=== PATIENT | male | born 1960 | race Caucasian/White ===

== ENCOUNTER 2016-08-06 08:57 | Emergency (ER) | payer BC ==
[~2016-08-06] VITALS: Wt 185.6 kg
[~2016-08-06 08:57] MED LIST: ACIDOPHILUS LA1 EACH PO; AMOXICILLIN875 MG PO; ATIVAN1 M1 PO; ATIVAN1 MG PO; CLOPIDOGREL PO; FAMVIR500 MG PO; LEVSIN-SL0.125 MG SL; NORCO 325 MG-51 TA1 PO; PROAIR HFA0.09 MG/AC IH; ULTRAM50 M1
[2016-08-06] MEDS ORDERED: B COMPLEX1 EACH PO (09:48)
[2016-08-06] MEDS ORDERED: SYMBICORT1 AE2 IH (09:48)
[2016-08-06] MEDS ORDERED: GABAPENTIN100 MG PO (09:49)
[2016-08-06] MEDS ORDERED: BACTRIM DS TAB1 EACH PO (12:08)
[2016-08-06 12:44] VITALS: BP 157/97
== END 2016-08-06 12:45 | disposition home or self-care (01) ==
LOC: ED 08:57
DX: L03.114 Cellulitis of left upper limb (principal); R29.898 Other symptoms and signs involving the musculoskeletal system; Z86.73 Personal history of transient ischemic attack (TIA), and cerebral infarction without residual deficits; Z79.02 Long term (current) use of antithrombotics/antiplatelets

== ENCOUNTER 2017-05-24 17:21 | Emergency (ER) | payer BC ==
[~2017-05-24] VITALS: Wt 185.3 kg
[~2017-05-24 17:21] MED LIST changes: +B COMPLEX1 EACH PO; +BACTRIM DS TAB1 EACH PO; +GABAPENTIN100 MG PO; +SYMBICORT1 AE2 IH
[2017-05-24 18:10] LABS: EOS # 0.1 (0.04-0.40); EOS % 1.6 % (0.0-4.0); HEMATOCRIT 39.8 % (42.0-52.0); HEMOGLOBIN 13.5 g/dL (13.5-18.0); LYMPH# 1.2 (1.50-4.00); MEAN CELL VOLUME 86 fl (78-100); MEAN CORPUSCULAR HEMOGLOBIN 29 pg (27-31); MEAN CORPUSCULAR HGB CONC 34 g/dL (33-37); MEAN PLATELET VOLUME 9.5 fl (7.4-10.4); MONO # 0.7 (0.20-0.80); NEU # 4.4 (1.40-6.50); PLATELET COUNT 195 K/mm3 (130-400); RED BLOOD COUNT 4.61 M/mm3 (4.20-5.60); RED CELL DISTRIBUTION WIDTH 14.2 % (11.5-14.5); WHITE BLOOD COUNT 6.4 K/mm3 (4.8-10.8)
[2017-05-24 18:27] LABS: ALBUMIN 3.9 g/dL (3.5-5.0); BUN/CREATININE RATIO 18.1 (6.0-26.0); CALCIUM 8.7 mg/dL (8.4-10.2); TOTAL BILIRUBIN 0.4 mg/dL (0.2-1.3); TOTAL PROTEIN 7.4 g/dL (6.3-8.2)
[2017-05-24 18:28] VITALS: BP 149/71
== END 2017-05-24 18:40 | disposition short-term general hospital (02) ==
LOC: ED 17:21
PROVIDERS: Nurse Practitioner Primary Care
DX: T75.4XXA Electrocution, initial encounter (principal); W86.8XXA Exposure to other electric current, initial encounter; Y92.028 Other place in mobile home as the place of occurrence of the external cause; R20.8 Other disturbances of skin sensation; R20.2 Paresthesia of skin; R23.8 Other skin changes; G40.909 Epilepsy, unspecified, not intractable, without status epilepticus; T45.526A Underdosing of antithrombotic drugs, initial encounter; Z91.120 Patient's intentional underdosing of medication regimen due to financial hardship; T50.996A Underdosing of other drugs, medicaments and biological substances, initial encounter; Z88.7 Allergy status to serum and vaccine
CPT/HCPCS: J7030

== ENCOUNTER → 2017-07-16 | Outpatient (CLI) | payer BC | LOC: LAB 15:28 | DX: I48.91 Unspecified atrial fibrillation (principal) ==

== ENCOUNTER 2018-01-17 23:26 | Emergency (ER) | payer BC ==
[2018-01-18 00:42] LABS: HEMATOCRIT 36.3 % (42.0-52.0); HEMOGLOBIN 12.6 g/dL (13.5-18.0); MEAN CELL VOLUME 87 fl (78-100); MEAN CORPUSCULAR HEMOGLOBIN 30 pg (27-31); MEAN CORPUSCULAR HGB CONC 35 g/dL (33-37); MEAN PLATELET VOLUME 9.4 fl (7.4-10.4); PLATELET COUNT 187 K/mm3 (130-400); RED BLOOD COUNT 4.16 M/mm3 (4.20-5.60); RED CELL DISTRIBUTION WIDTH 13.8 % (11.5-14.5); WHITE BLOOD COUNT 5.3 K/mm3 (4.8-10.8)
[2018-01-18 00:49] LABS: CALCIUM 9.3 mg/dL (8.4-10.2); POTASSIUM 3.6 mmol/L (3.6-5.0); TOTAL BILIRUBIN 0.6 mg/dL (0.2-1.3); TOTAL PROTEIN 6.9 g/dL (6.3-8.2)
[2018-01-18 00:51] LABS: PARTIAL THROMBOPLASTIN TIME 23.7 SECONDS (21.0-32.0); PROTHROMBIN TIME 10.7 SECONDS (9.0-12.0)
[2018-01-18 01:02] LABS: LYMPHOCYTE 25 % (20-51); MONOCYTE 14 % (3-10); NEUTROPHILS 59 % (42-75)
[2018-01-18 01:19] LABS: URINE WBC 0 /hpf (0-3)
[2018-01-18 01:26] LABS: URINE APPEARANCE CLEAR; URINE BILIRUBIN NEGATIVE (NEGATIVE); URINE BLOOD NEGATIVE (NEGATIVE); URINE COLOR YELLOW; URINE GLUCOSE NEGATIVE (NEGATIVE); URINE KETONE NEGATIVE (NEGATIVE); URINE LEUKOCYTE ESTERASE NEGATIVE (NEGATIVE); URINE MUCUS PRESENT (NOT PRESENT); URINE NITRATE NEGATIVE (NEGATIVE); URINE PROTEIN(semi-quant) TRACE mg/dL (NEGATIVE); URINE UROBILINOGEN NORMAL (NORMAL)
[2018-01-18] MEDS ORDERED: NORCO 10-325 T1 EACH PO (01:33)
[2018-01-18 01:40] VITALS: BP 136/73
== END 2018-01-18 01:40 | disposition home or self-care (01) ==
LOC: ED 23:26
PROVIDERS: Nurse Practitioner
DX: R07.81 Pleurodynia (principal); S70.11XA Contusion of right thigh, initial encounter; W18.09XA Striking against other object with subsequent fall, initial encounter; I48.91 Unspecified atrial fibrillation; J44.9 Chronic obstructive pulmonary disease, unspecified; R56.9 Unspecified convulsions; Z79.02 Long term (current) use of antithrombotics/antiplatelets; Z79.899 Other long term (current) drug therapy

== ENCOUNTER 2018-05-02 13:52 | Emergency (ER) | payer BC ==
[~2018-05-02 13:52] MED LIST changes: +NORCO 10-325 T1 EACH PO
[2018-05-02 14:30] LABS: EOS # 0.1 (0.04-0.40); EOS % 1.4 % (0.0-4.0); HEMATOCRIT 40.2 % (42.0-52.0); HEMOGLOBIN 13.8 g/dL (13.5-18.0); MEAN CELL VOLUME 84 fl (78-100); MEAN CORPUSCULAR HEMOGLOBIN 29 pg (27-31); MEAN CORPUSCULAR HGB CONC 34 g/dL (33-37); MEAN PLATELET VOLUME 9.2 fl (7.4-10.4); MONO # 0.6 (0.20-0.80); NEU # 4.8 (1.40-6.50); PLATELET COUNT 218 K/mm3 (130-400); RED BLOOD COUNT 4.77 M/mm3 (4.20-5.60); RED CELL DISTRIBUTION WIDTH 13.9 % (11.5-14.5); WHITE BLOOD COUNT 6.4 K/mm3 (4.8-10.8)
[2018-05-02 14:40] LABS: ALBUMIN 4.3 g/dL (3.5-5.0); CALCIUM 9.4 mg/dL (8.4-10.2); TOTAL BILIRUBIN 0.6 mg/dL (0.2-1.3); TOTAL PROTEIN 7.7 g/dL (6.3-8.2)
[2018-05-02] MEDS ORDERED: AMOXICILLIN 50500 MG (14:49)
[2018-05-02] MEDS ORDERED: ONDANSETRON ODT8 MG PO (14:49)
[2018-05-02] MEDS ORDERED: METOPROLOL SUCC50 M1 PO (14:50)
[2018-05-02] MEDS ORDERED: FLECAINIDE ACE100 MG PO (14:50)
[2018-05-02] MEDS ORDERED: ELIQUIS5 MG PO (14:50)
[2018-05-02] MEDS ORDERED: HCTZ 25MG25 MG PO (14:50)
[2018-05-02 17:15] VITALS: BP 147/89
== END 2018-05-02 17:15 | disposition short-term general hospital (02) ==
LOC: ED 13:52
PROVIDERS: Nurse Practitioner Primary Care
DX: G81.92 Hemiplegia, unspecified affecting left dominant side (principal); R07.9 Chest pain, unspecified; I10 Essential (primary) hypertension; I25.2 Old myocardial infarction; G40.909 Epilepsy, unspecified, not intractable, without status epilepticus; Z79.01 Long term (current) use of anticoagulants; Z88.7 Allergy status to serum and vaccine; Z90.5 Acquired absence of kidney

== ENCOUNTER 2021-03-25 10:12 | Emergency (ER) | payer SELFPAY ==
[~2021-03-25] VITALS: Ht 182.9 cm; Wt 192.9 kg
[~2021-03-25 10:12] MED LIST changes: +AMOXICILLIN 50500 MG; +ASPIRIN 81M81 MG/TA2 PO; +CORTISPORIN-TC10 M1 OT; +ELIQUIS5 MG PO; +FLECAINIDE ACE100 MG PO; +GOOD NEIGHBOR P20 M1 PO; +HCTZ 25MG25 MG PO; +METOPROLOL SUCC50 M1 PO; +ONDANSETRON ODT8 MG PO; +TOPAMAX100 MG PO
[2021-03-25 11:13] LABS: HEMATOCRIT 38.7 % (42.0-52.0); HEMOGLOBIN 12.8 g/dL (13.5-18.0); MEAN CELL VOLUME 87 fl (78-100); MEAN CORPUSCULAR HEMOGLOBIN 29 pg (27-31); MEAN CORPUSCULAR HGB CONC 33 g/dL (33-37); MEAN PLATELET VOLUME 9.1 fl (7.4-10.4); PLATELET COUNT 199 K/mm3 (130-400); RED BLOOD COUNT 4.46 M/mm3 (4.20-5.60); RED CELL DISTRIBUTION WIDTH 14.3 % (11.5-14.5); WHITE BLOOD COUNT 7.5 K/mm3 (4.8-10.8)
[2021-03-25 11:14] LABS: ALBUMIN 3.7 g/dL (3.4-4.8)
[2021-03-25 11:15] LABS: CALCIUM 8.9 mg/dL (8.3-10.5)
[2021-03-25 11:17] LABS: TOTAL PROTEIN 7.1 g/dL (6.2-8.1)
[2021-03-25 11:18] LABS: TOTAL BILIRUBIN 0.7 mg/dL (0.2-1.2)
[2021-03-25 12:30] LABS: LYMPHOCYTE 6 % (20-51); MONOCYTE 6 % (3-10); NEUTROPHILS 85 % (42-75)
[2021-03-25 12:32] LABS: D-DIMER 0.72 mg/L FEU (0.15-0.50)
[2021-03-25] MEDS ORDERED: ZITHROMAX Z PA250 MG PO (13:48)
[2021-03-25] MEDS ORDERED: AUGMENTIN 875-1 EAC1 PO (13:48)
[2021-03-25 14:00] VITALS: BP 149/69
== END 2021-03-25 14:20 | disposition home or self-care (01) ==
LOC: ED 10:12
PROVIDERS: Physician Assistant
DX: J18.1 Lobar pneumonia, unspecified organism (principal); J44.9 Chronic obstructive pulmonary disease, unspecified; I10 Essential (primary) hypertension; Z87.891 Personal history of nicotine dependence; Z79.01 Long term (current) use of anticoagulants; Z79.899 Other long term (current) drug therapy; Z79.51 Long term (current) use of inhaled steroids; Z20.822 Contact with and (suspected) exposure to COVID-19
CPT/HCPCS: Q9967

== ENCOUNTER 2023-06-11 06:14 | Emergency (ER) | payer MEDICARE ==
[~2023-06-11 06:14] MED LIST changes: +AUGMENTIN 875-1 EAC1 PO; +ZITHROMAX Z PA250 MG PO
[2023-06-11 07:01] LABS: BASO # 0.01 K/mm3 (0.02-0.10); EOS # 0.09 K/mm3 (0.04-0.40); EOS % 1.9 % (0.0-4.0); HEMATOCRIT 37.7 % (42.0-52.0); HEMOGLOBIN 12.6 g/dL (13.5-18.0); MEAN CELL VOLUME 88 fl (78-100); MEAN CORPUSCULAR HEMOGLOBIN 29 pg (27-31); MEAN CORPUSCULAR HGB CONC 33 g/dL (33-37); MEAN PLATELET VOLUME 9.3 fl (7.4-10.4); NEU # 3.78 K/mm3 (1.40-6.50); PLATELET COUNT 150 K/mm3 (130-400); RED CELL DISTRIBUTION WIDTH 13.8 % (11.5-14.5); WHITE BLOOD COUNT 4.8 K/mm3 (4.8-10.8)
[2023-06-11 07:05] LABS: ALBUMIN 3.7 g/dL (3.4-4.8)
[2023-06-11 07:06] LABS: SODIUM 140 mmol/L (136-145)
[2023-06-11 07:07] LABS: CALCIUM 8.9 mg/dL (8.3-10.5)
[2023-06-11 07:08] LABS: GLUCOSE 110 mg/dL (75-110); TOTAL PROTEIN 6.4 g/dL (6.2-8.1)
[2023-06-11 07:09] LABS: CARBON DIOXIDE 21 mmol/L (23-31)
[2023-06-11 07:10] LABS: TOTAL BILIRUBIN 0.5 mg/dL (0.2-1.2)
[2023-06-11 07:13] LABS: AST-SGOT 21 U/L (5-34)
[2023-06-11 07:14] LABS: ALT/SGPT 36 U/L (0-55)
[2023-06-11 07:20] LABS: TROPONIN-I < 0.030 ng/mL (0.00-0.033)
[2023-06-11] MEDS ORDERED: ZITHROMAX Z PA250 MG PO (08:54)
[2023-06-11 09:11] VITALS: BP 136/85
[2023-06-11 13:25] LABS: LYMPH# 0.44 K/mm3 (1.50-4.00)
== END 2023-06-11 09:09 | disposition home or self-care (01) ==
LOC: ED 06:14
PROVIDERS: Nurse Practitioner
DX: J40 Bronchitis, not specified as acute or chronic (principal); J98.01 Acute bronchospasm; I11.0 Hypertensive heart disease with heart failure; I50.9 Heart failure, unspecified; G40.109 Localization-related (focal) (partial) symptomatic epilepsy and epileptic syndromes with simple partial seizures, not intractable, without status epilepticus; E66.01 Morbid (severe) obesity due to excess calories; Z87.891 Personal history of nicotine dependence; Z88.1 Allergy status to other antibiotic agents

== ENCOUNTER 2023-10-03 13:13 | Emergency (ER) | payer MEDICARE ==
[~2023-10-03 13:13] MED LIST changes: +ACETAMINOPHEN-H1 TA2 PO; +ALDACTONE 25MG25 MG PO; +LASIX80 M1 PO; +LOSARTAN POTASS25 MG PO; +POTASSIUM CHLO20 ME4 PO; +ROBAXIN 75750 MG/TA1 PO; +TORSEMIDE20 M1 PO; +VALACYCLOVIR1 GM PO
[2023-10-03 14:49] LABS: HEMATOCRIT 38.4 % (42.0-52.0); HEMOGLOBIN 12.9 g/dL (13.5-18.0); MEAN CELL VOLUME 89 fl (78-100); MEAN CORPUSCULAR HEMOGLOBIN 30 pg (27-31); MEAN CORPUSCULAR HGB CONC 34 g/dL (33-37); MEAN PLATELET VOLUME 9.8 fl (7.4-10.4); PLATELET COUNT 200 K/mm3 (130-400); RED BLOOD COUNT 4.33 M/mm3 (4.20-5.60); RED CELL DISTRIBUTION WIDTH 14.8 % (11.5-14.5); WHITE BLOOD COUNT 5.9 K/mm3 (4.8-10.8)
[2023-10-03 14:58] LABS: ALBUMIN 3.9 g/dL (3.4-4.8)
[2023-10-03 14:59] LABS: SODIUM 139 mmol/L (136-145)
[2023-10-03 15:01] LABS: GLUCOSE 106 mg/dL (75-110); TOTAL PROTEIN 6.8 g/dL (6.2-8.1)
[2023-10-03 15:02] LABS: CARBON DIOXIDE 19 mmol/L (23-31)
[2023-10-03 15:03] LABS: TOTAL BILIRUBIN 0.5 mg/dL (0.2-1.2)
[2023-10-03 15:06] LABS: AST-SGOT 20 U/L (5-34)
[2023-10-03 15:07] LABS: ALT/SGPT 27 U/L (0-55)
[2023-10-03 15:13] LABS: TROPONIN-I < 0.030 ng/mL (0.00-0.033)
[2023-10-03 15:21] LABS: LYMPHOCYTE 9 % (20-51); MONOCYTE 8 % (3-10); NEUTROPHILS 83 % (42-75)
[2023-10-03] MEDS ORDERED: Furosemide 40 MG/4 ML VIAL IV ONE ×2 (15:30)
[2023-10-03] MEDS ORDERED: Torsemide 20 MG TAB PO ONE (15:30)
[2023-10-03] MEDS ORDERED: Spironolactone 25 MG TAB PO ONE (15:30)
[2023-10-03] MEDS ORDERED: AMIODARONE200 MG PO (15:57)
[2023-10-03 16:38] VITALS: BP 122/78
== END 2023-10-03 16:38 | disposition home or self-care (01) ==
LOC: ED 13:13
PROVIDERS: Physician Assistant
DX: I50.9 Heart failure, unspecified (principal); Z87.09 Personal history of other diseases of the respiratory system
CPT/HCPCS: J1940

== ENCOUNTER 2023-12-08 16:16 | Emergency (ER) | payer MEDICARE ==
[~2023-12-08] VITALS: Ht 182.9 cm; Wt 192.5 kg
[~2023-12-08 16:16] MED LIST changes: +AMIODARONE200 MG PO
[2023-12-08] MEDS ORDERED: BENZONATATE100 M2 PO (16:26)
[2023-12-08] MEDS ORDERED: AZITHROMYCIN 250MGPK PO (16:28)
[2023-12-08] MEDS ORDERED: PREDNISONE20 M1 PO (16:28)
[2023-12-08] MEDS ORDERED: GOOD NEIGHBOR325 MG PO (16:30)
[2023-12-08] MEDS ORDERED: FLUTICASONE-SA1 EAC4 IH (16:31)
[2023-12-08 17:00] LABS: HEMATOCRIT 39.7 % (42.0-52.0); HEMOGLOBIN 13.4 g/dL (13.5-18.0); MEAN CELL VOLUME 88 fl (78-100); MEAN CORPUSCULAR HEMOGLOBIN 30 pg (27-31); MEAN CORPUSCULAR HGB CONC 34 g/dL (33-37); MEAN PLATELET VOLUME 9.5 fl (7.4-10.4); PLATELET COUNT 195 K/mm3 (130-400); RED CELL DISTRIBUTION WIDTH 14.5 % (11.5-14.5); WHITE BLOOD COUNT 8.2 K/mm3 (4.8-10.8)
[2023-12-08 17:03] LABS: ALBUMIN 3.9 g/dL (3.4-4.8)
[2023-12-08 17:04] LABS: CALCIUM 9.6 mg/dL (8.3-10.5)
[2023-12-08 17:07] LABS: PROTHROMBIN TIME 11.1 SECONDS (9.0-12.0); TOTAL BILIRUBIN 0.3 mg/dL (0.2-1.2)
[2023-12-08 17:13] LABS: LYMPHOCYTE 6 % (20-51); MONOCYTE 5 % (3-10); NEUTROPHILS 89 % (42-75)
[2023-12-08] MEDS ORDERED: ANUSOL-HC SUPPO25 MG RC (17:35)
[2023-12-08 17:37] LABS: PH-URINE 6.5 (5.0 - 8.0); URINE APPEARANCE CLEAR (CLEAR); URINE BILIRUBIN NEGATIVE (NEGATIVE); URINE COLOR YELLOW (YELLOW); URINE GLUCOSE NEGATIVE (NEGATIVE); URINE KETONE NEGATIVE (NEGATIVE); URINE PROTEIN(semi-quant) NEGATIVE (NEGATIVE)
[2023-12-08 17:38] LABS: URINE BLOOD NEGATIVE (NEGATIVE); URINE LEUKOCYTE ESTERASE 1+ (NEGATIVE); URINE NITRATE NEGATIVE (NEGATIVE)
[2023-12-08 17:56] VITALS: BP 115/88
== END 2023-12-08 17:45 | disposition home or self-care (01) ==
LOC: ED 16:16
PROVIDERS: Family Medicine
DX: K64.4 Residual hemorrhoidal skin tags (principal); K92.1 Melena; E66.01 Morbid (severe) obesity due to excess calories; Z68.43 Body mass index [BMI] 50.0-59.9, adult

== ENCOUNTER 2024-06-17 14:16 | Emergency (ER) | payer MEDICARE ==
[~2024-06-17] VITALS: Ht 182.9 cm; Wt 194.3 kg
[~2024-06-17 14:16] MED LIST changes: +ANUSOL-HC SUPPO25 MG RC; +AZITHROMYCIN 250MGPK PO; +BENZONATATE100 M2 PO; +FLUTICASONE-SA1 EAC4 IH; +GOOD NEIGHBOR325 MG PO; +PREDNISONE20 M1 PO
[2024-06-17] MEDS ORDERED: ASPIRIN E.C. 8181 MG (14:24)
[2024-06-17] MEDS ORDERED: ZYRTEC10 M3 PO (14:25)
[2024-06-17] MEDS ORDERED: GUAIFEN-CODEIN118 ML PO (14:27)
[2024-06-17 14:40] LABS: HEMATOCRIT 39.9 % (42.0-52.0); HEMOGLOBIN 13.5 g/dL (13.5-18.0); MEAN CELL VOLUME 88 fl (78-100); MEAN CORPUSCULAR HEMOGLOBIN 30 pg (27-31); MEAN CORPUSCULAR HGB CONC 34 g/dL (33-37); MEAN PLATELET VOLUME 9.1 fl (7.4-10.4); PLATELET COUNT 132 K/mm3 (130-400); RED BLOOD COUNT 4.52 M/mm3 (4.20-5.60); RED CELL DISTRIBUTION WIDTH 14.4 % (11.5-14.5)
[2024-06-17 14:47] LABS: ALBUMIN 3.8 g/dL (3.4-4.8)
[2024-06-17 14:49] LABS: CALCIUM 8.7 mg/dL (8.3-10.5)
[2024-06-17 14:50] LABS: TOTAL PROTEIN 7.1 g/dL (6.2-8.1)
[2024-06-17 14:52] LABS: TOTAL BILIRUBIN 0.6 mg/dL (0.2-1.2)
[2024-06-17 15:02] LABS: PROTHROMBIN TIME 10.9 SECONDS (9.0-12.0)
[2024-06-17 15:03] LABS: BAND 1 % (0-10); LYMPHOCYTE 10 % (20-51); MONOCYTE 8 % (3-10); NEUTROPHILS 79 % (42-75)
[2024-06-17 16:36] LABS: PH-URINE 6.5 (5.0 - 8.0); URINE APPEARANCE CLEAR (CLEAR); URINE BILIRUBIN NEGATIVE (NEGATIVE); URINE BLOOD NEGATIVE (NEGATIVE); URINE COLOR YELLOW (YELLOW); URINE GLUCOSE NEGATIVE (NEGATIVE); URINE KETONE NEGATIVE (NEGATIVE); URINE LEUKOCYTE ESTERASE NEGATIVE (NEGATIVE); URINE NITRATE NEGATIVE (NEGATIVE); URINE PROTEIN(semi-quant) 1+ (NEGATIVE); URINE WBC 0-1 /hpf (0-3)
[2024-06-17 16:37] LABS: URINE MUCUS PRESENT (NOT PRESENT)
[2024-06-17 17:16] VITALS: BP 137/73
== END 2024-06-17 17:15 | disposition home or self-care (01) ==
LOC: ED 14:16
PROVIDERS: Family Medicine
DX: K92.1 Melena (principal); K64.4 Residual hemorrhoidal skin tags; I48.0 Paroxysmal atrial fibrillation; E66.01 Morbid (severe) obesity due to excess calories; Z79.01 Long term (current) use of anticoagulants; Z68.43 Body mass index [BMI] 50.0-59.9, adult